=== PATIENT | female | born 1965 | race Caucasian/White ===

== ENCOUNTER 2020-06-23 14:53 | Emergency (ER) | payer MEDICARE, OTHER | END 2020-06-23 15:50 | disposition home or self-care (01) | LOC: ER1 14:53 | DX: J18.9 Pneumonia, unspecified organism (principal); E11.9 Type 2 diabetes mellitus without complications; Z79.899 Other long term (current) drug therapy | CPT/HCPCS: 93005; 99284 ==

== ENCOUNTER 2020-06-25 10:16 | Emergency (ER) | payer MEDICARE, OTHER ==
[2020-06-25 11:29] LABS: HEMOGLOBIN 15.2 gm/dl (12.3-15.3); RED BLOOD COUNT 4.21 M/UL (4.00-5.10); WHITE BLOOD COUNT 4.1 K/UL (4.5-11.0)
== END 2020-06-25 11:30 | disposition home or self-care (01) ==
LOC: ER1 10:16
PROVIDERS: Emergency Medicine
DX: R10.9 Unspecified abdominal pain (principal); E11.9 Type 2 diabetes mellitus without complications; Z87.440 Personal history of urinary (tract) infections
CPT/HCPCS: 80053; 81001; 83690; 84703; 85025; 87086; 99284

== ENCOUNTER 2020-07-19 19:34 | Emergency (ER) | payer MEDICARE, OTHER | END 2020-07-19 19:46 | disposition left against medical advice (07) | LOC: ER1 19:34 | DX: Z53.21 Procedure and treatment not carried out due to patient leaving prior to being seen by health care provider (principal) ==